=== PATIENT | male | born 2005 | race Caucasian/White ===

== ENCOUNTER 2024-01-27 07:19 | Emergency (ER) | payer OTHER ==
[~2024-01-27] VITALS: Ht 177.8 cm; Wt 72.2 kg
[2024-01-27 08:14] LABS: BASO % 0.4 % (0.0-1.0); EOS # 0.2 10^3/uL (0.0-0.5); EOS % 1.8 % (0.0-3.0); HEMATOCRIT 41.7 % (42.0-52.0); HEMOGLOBIN 13.7 g/dl (13.5-17.5); LYMPH # 1.2 10^3/uL (1.5-5.0); LYMPH % 13.5 % (24.0-44.0); MEAN CORPUSCULAR HEMOGLOBIN 27.3 pg (27.0-33.0); MEAN CORPUSCULAR HGB CONC 32.9 g/dl (32.0-36.5); MEAN CORPUSCULAR VOLUME 83.1 fl (80.0-96.0); MONO # 0.5 10^3/uL (0.0-0.8); MONO % 5.8 % (2.0-8.0); NEUTROPHILS # 6.7 10^3/uL (1.5-8.5); NEUTROPHILS % 78.1 % (36.0-66.0); PLATELET COUNT, AUTOMATED 292 10^3/uL (150-450); RED BLOOD COUNT 5.02 10^6/uL (4.30-6.10); WHITE BLOOD COUNT 8.5 10^3/uL (4.0-10.0)
[2024-01-27 08:49] LABS: BLOOD UREA NITROGEN 10 MG/DL (9-23); CALCIUM LEVEL 9.6 MG/DL (8.5-10.1); CARBON DIOXIDE LEVEL 28 MMOL/L (20-31); CHLORIDE LEVEL 105 MMOL/L (98-107); CREATININE FOR GFR 0.78 MG/DL (0.70-1.30); GLUCOSE, FASTING 95 MG/DL (60-100); POTASSIUM SERUM 4.3 MMOL/L (3.5-5.1); SODIUM LEVEL 140 MMOL/L (136-145)
[2024-01-27] MEDS ORDERED: VENTAER INH (08:58)
[2024-01-27 09:05] VITALS: BP 124/77; TEMP 97.4; O2SAT 97
== END 2024-01-27 09:08 | disposition home or self-care (01) ==
LOC: M ED 07:19
DX: J20.9 Acute bronchitis, unspecified (principal); Z79.51 Long term (current) use of inhaled steroids

== ENCOUNTER → 2024-08-15 | Outpatient (CLI) | payer OTHER ==
[~2024-08-15] MED LIST: VENTAER INH
== END ==
LOC: M RAD 15:21
PROVIDERS: ATTEND Nurse Practitioner Family
DX: S59.901A Unspecified injury of right elbow, initial encounter (principal); W18.30XA Fall on same level, unspecified, initial encounter; Y92.009 Unspecified place in unspecified non-institutional (private) residence as the place of occurrence of the external cause

== ENCOUNTER 2024-10-17 15:20 | Emergency (ER) | payer OTHER ==
[~2024-10-17] VITALS: Ht 177.8 cm; Wt 75.0 kg
[2024-10-17] MEDS ORDERED: IBUP200C29 PO (15:29)
[2024-10-17] MEDS: NS (Normal Saline) 0.9% 1,000 ML IV ONE (19:55)
[2024-10-17] MEDS: ACETAMINOPHEN 500 MG TAB PO ONE (19:55)
[2024-10-17] MEDS: diphenhydrAMINE 50MG/ML VIAL IV ONE (19:55)
[2024-10-17] MEDS: METOCLOPRAMIDE INJ 10MG/2ML VIAL IV ONE (19:55)
[2024-10-17 20:38] LABS: BASO % 0.4 % (0.0-1.0); EOS # 0.1 10^3/uL (0.0-0.5); EOS % 1.7 % (0.0-3.0); HEMATOCRIT 41.6 % (42.0-52.0); HEMOGLOBIN 14.1 g/dl (13.5-17.5); LYMPH # 0.9 10^3/uL (1.5-5.0); LYMPH % 12.6 % (24.0-44.0); MEAN CORPUSCULAR HEMOGLOBIN 28.5 pg (27.0-33.0); MEAN CORPUSCULAR HGB CONC 33.9 g/dl (32.0-36.5); MEAN CORPUSCULAR VOLUME 84.2 fl (80.0-96.0); MONO # 0.5 10^3/uL (0.0-0.8); MONO % 7.6 % (2.0-8.0); NEUTROPHILS # 5.4 10^3/uL (1.5-8.5); NEUTROPHILS % 77.4 % (36.0-66.0); PLATELET COUNT, AUTOMATED 173 10^3/uL (150-450); RED BLOOD COUNT 4.94 10^6/uL (4.30-6.10); WHITE BLOOD COUNT 6.9 10^3/uL (4.0-10.0)
[2024-10-17 20:57] LABS: BLOOD UREA NITROGEN 14 MG/DL (9-23); C REACTIVE PROTEIN QUANTITATIV < 0.50 MG/DL (<1.0); CARBON DIOXIDE LEVEL 30 MMOL/L (20-31); CHLORIDE LEVEL 106 MMOL/L (98-107); GLUCOSE, FASTING 89 MG/DL (60-100); POTASSIUM SERUM 3.8 MMOL/L (3.5-5.1); SODIUM LEVEL 142 MMOL/L (136-145)
[2024-10-17 21:10] LABS: ERYTHROCYTE SEDIMENTATION RATE 9 mm/hr (0-15)
[2024-10-17 21:54] VITALS: BP 100/60; TEMP 98.9; O2SAT 98
== END 2024-10-17 22:02 | disposition home or self-care (01) ==
LOC: M ED 15:20
DX: F07.81 Postconcussional syndrome (principal); Z79.52 Long term (current) use of systemic steroids; Z79.1 Long term (current) use of non-steroidal anti-inflammatories (NSAID)
CPT/HCPCS: 70450; 80048; 85025; 85652; 86140; 96361; 96374; 99284; J1200; J2765